=== PATIENT | female | born 1995 | race Caucasian/White ===

== ENCOUNTER 2018-01-16 16:05 | Emergency (ER) | payer OTHER ==
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
[2018-01-16 17:02] LABS: ABS Basophils 0 10^3/ul (0-0.2); ABS Eosinophils 0 10^3/ul (0-0.6); ABS Monocytes 0.5 10^3/ul (0-0.8); ABS Nucleated RBC 0 10^3/ul; Eosinophil % 0.3 %; Hematocrit 43 % (35-47); Hemoglobin 14.1 g/dl (12.0-16.0); Lymphocyte % 9.4 %; Mean Corpuscular HGB Conc 33 g/dl (31-36); Mean Corpuscular Hemoglobin 30 pg (27-31); Mean Corpuscular Volume 92 fL (80-97); Mean Platelet Volume 7.9 fL (7.4-10.4); Nucleated Red Blood Cells % 0; Platelet Count 268 10^3/ul (150-450); Red Blood Count 4.64 10^6/ul (4.00-5.40); Red Cell Distribution Width 14 % (10.5-15); White Blood Count 10.5 10^3/ul (3.5-10.8)
[2018-01-16 17:26] LABS: Urine Appearance Clear; Urine Blood 1+ (Negative); Urine Color Straw; Urine Ketones Negative (Negative); Urine Protein Negative (Negative); Urine Red Blood Cell Trace(0-2/hpf) (Absent); Urine Specific Gravity 1.003 (1.010-1.030); Urine Urobilinogen Negative (Negative); Urine White Blood Cell Trace(0-5/hpf) (Absent)
[2018-01-16 17:39] LABS: EGFR Non-African American 103.3 (>60)
--- NOTE | 2018-01-16 19:14 | ED ---
Progress - Progress Note Progress Note: Patient is received as a sign out from Dr. Brothers to Dr. Carpenter at 1900 01/16/18 shift change pending MHE of this mental health patient. 0158 - Dr. Malone reviewed the patient's case, patient will be discharged to home. Dr. Carpenter is agreeable with this plan. Dx of panic attack. Course/Dx - Course Course Of Treatment: Patient is received as a sign out from Dr. Brothers to Dr. Carpenter at 1900 01/16/18 shift change pending MHE of this mental health patient. 0158 - Dr. Malone reviewed the patient's case, patient will be discharged to home. Dr. Carpenter is agreeable with this plan. Dx of panic attack. - Diagnoses Provider Diagnoses: Panic attack - Provider Notifications Discussed Care Of Patient With: Dewayne Malone Time Discussed With Above Provider: 01:58 Instructed by Provider To: Other - Dr. Malone reviewed the patient's case, patient will be discharged to home. Dr. Carpenter is agreeable with this plan. Dx of panic attack. Discharge - Sign-Out/Discharge Documenting (check all that apply): Patient Departure - discharge - Discharge Plan Condition: Stable Disposition: HOME Referrals: No Primary Care Phys,NOPCP [Primary Care Provider] - - Attestation Statements Document Initiated by Scribe: Yes Documenting Scribe: MAURA HERNANDEZ Provider For Whom Gabrielle is Documenting (Include Credential): MAGGIE CARPENTER MD Scribe Attestation: MAURA Brito , scribed for MAGGIE CARPENTER MD on 01/17/18 at 0201. Status of Scribe Document: Ready
[2018-01-17 02:25] VITALS: BP 0/0
== END 2018-01-17 02:24 | disposition home or self-care (01) ==
LOC: ED 16:05
DX: F32.9 Major depressive disorder, single episode, unspecified (principal); Z88.0 Allergy status to penicillin
CPT/HCPCS: 36415; 80053; 80307; 80320; 80329; 81003; 81015; 84443; 85025; 87086; 99285; G0480